=== PATIENT | female | born 1945 | race Caucasian/White ===

== ENCOUNTER 2023-07-28 21:44 | Inpatient (IN) | payer MEDICARE ==
[2023-07-28] MEDS ORDERED: Lidocaine 1% PF 5 ML VIAL ONE (23:40)
[2023-07-28 23:54] LABS: #Eosinphils 0.2 thou/uL (0.0-0.7); #Monocytes 0.9 thou/uL (0.11-0.59); %Basophils 0.2 % (0.0-1.0); %Eosinophils 1.7 % (0.0-10.0); %Lymphocytes 21.2 % (21.0-51.0); %Neutrophils 67.6 % (42.0-75.0); Hematocrit 40.1 % (36.0-47.0); Hemoglobin 12.7 g/dL (12.0-16.0); Mean Corpuscular HGB CONC 31.7 g/dL (32.0-36.0); Mean Corpuscular Hemoglobin 27.2 pg (27.0-31.0); Mean Corpuscular Volume 85.9 fl (78.0-98.0); Mean Platelet Volume 9.5 fL (7.4-10.4); Platelet Count 109 10x3/uL (130-400); RBC Distribution Width 26.1 % (11.5-14.5); Red Blood Cell (RBC) Count 4.67 mill/uL (4.20-5.40); White Blood Cell (WBC) Count 10.4 10x3/uL (4.8-10.8)
[2023-07-29 00:06] LABS: INR-International Normal Ratio 1.4; PTT 31.2 sec (22.9-36.1); Prothrombin Time 17.3 sec (12.0-14.7)
[2023-07-29 00:14] LABS: ALT (SGPT) 28 U/L (8-55); AST (SGOT) 39 U/L (5-34); Albumin 2.9 g/dL (3.4-4.8); Alkaline Phosphatase 162 U/L (40-110); Anion Gap 18 mmol/L (10-20); BUN (Urea Nitrogen) 24 mg/dL (9.8-20.1); Bilirubin, Total 2.2 mg/dL (0.2-1.2); Calc. Creatinine Clearance 0 mL/min (70-130); Calcium 9.1 mg/dL (7.8-10.44); Carbon Dioxide 24 mmol/L (23-31); Chloride 100 mmol/L (98-107); Estimated GFR 32; Globulin 4.6 g/dL (2.4-3.5); Glucose 110 mg/dL (83-110); Potassium 4.3 mmol/L (3.5-5.1); Protein, Total 7.5 g/dL (5.8-8.1); Sodium 138 mmol/L (136-145)
[2023-07-29 00:28] LABS: Anisocytosis MARKED = >30 cells HPF (0-5); CellaVision Operator ID lab.sh2; Hypochromia SLIGHT = 6-15 cells HPF (0-5); Macrocytosis MODERATE=16-30 cells HPF (0-5); Ovalocytes SLIGHT = 2-5 cells HPF (0-1); Platelet Adequacy Comment Platelets Decreased; Polychromasia MODERATE = 3-4 cells HPF (0-2)
[2023-07-29 00:43] LABS: Troponin I Less than 0.010 ng/mL (< 0.028)
[2023-07-29] MEDS ORDERED: Lorazepam 1 MG TAB ONE (01:01)
[2023-07-29] MEDS ORDERED: Ondansetron ODT 4 MG TAB ONE (01:05)
[2023-07-29] MEDS ORDERED: Morphine 4 MG/ML VIAL ONE (01:21)
[2023-07-29] MEDS ORDERED: Haloperidol Lactate 5 MG/ML VIAL ONE ×2 (01:21→02:16)
[2023-07-29] MEDS ORDERED: Ondansetron PF 4 MG/2 ML Vial ONE (01:21)
[2023-07-29] MEDS ORDERED: Dextrose 50% Abboject 50 ML SYRINGE SLOW IVP PRN (03:34)
[2023-07-29] MEDS ORDERED: Dextrose 5% in Water 1,000 ML IV PRN (03:34)
[2023-07-29] MEDS ORDERED: Glucagon 1 MG/ML KIT IM PRN (03:34)
[2023-07-29] MEDS ORDERED: Acetaminophen 500 MG TAB PO PRN (03:38)
[2023-07-29 04:14] LABS: #Eosinphils 0.1 thou/uL (0.0-0.7); #Monocytes 0.9 thou/uL (0.11-0.59); #Neutrophils 8.2 thou/uL (1.40-6.50); %Basophils 0.2 % (0.0-1.0); %Eosinophils 0.9 % (0.0-10.0); %Lymphocytes 14.4 % (21.0-51.0); %Monocytes 7.9 % (0.0-10.0); %Neutrophils 76.2 % (42.0-75.0); Hematocrit 37.3 % (36.0-47.0); Mean Corpuscular HGB CONC 32.2 g/dL (32.0-36.0); Mean Corpuscular Hemoglobin 27.3 pg (27.0-31.0); Mean Corpuscular Volume 84.8 fl (78.0-98.0); Mean Platelet Volume 9.7 fL (7.4-10.4); Platelet Count 108 10x3/uL (130-400); RBC Distribution Width 25.8 % (11.5-14.5); White Blood Cell (WBC) Count 10.8 10x3/uL (4.8-10.8)
[2023-07-29 04:33] LABS: Anion Gap 16 mmol/L (10-20); BUN (Urea Nitrogen) 24 mg/dL (9.8-20.1); Calc. Creatinine Clearance 0 mL/min (70-130); Calcium 9.4 mg/dL (7.8-10.44); Carbon Dioxide 27 mmol/L (23-31); Chloride 100 mmol/L (98-107); Estimated GFR 35; Glucose 152 mg/dL (83-110); Sodium 139 mmol/L (136-145)
[2023-07-29 04:40] LABS: Magnesium 2.3 mg/dL (1.6-2.6)
[2023-07-29 05:32] LABS: Bacteria/HPF 4+ HPF (None Seen); Bilirubin Negative (Negative); Blood, Urine 2+ (Negative); CAUTI Indications for Culture Alt mental st,lethar; Clarity Extra Turbid (Clear); Glucose, Urine (Dipstick) 200 mg/dL (Negative); Ketone, Urine Negative (Negative); Leukocyte 500 Leu/uL (Negative); Nitrite 1+ (Negative); Protein, Urine (Dipstick) 20 mg/dL (Neg-Trace); Specific Gravity, Urine 1.012 (1.002-1.036); Urobilinogen Normal mg/dL (Less than 2); WBC/HPF Greater than 50 HPF (0-3); Yeast-Budding 4+ HPF (None Seen); pH, Urine 5.5 (5.0-9.0)
[2023-07-29 05:34] LABS: Urine Culture Reflex Yes Yes
[2023-07-29 05:36] LABS: Amphetamine Not Detected (NotDetected); Barbiturates Screen Not Detected (NotDetected); Benzodiazepine Screen Not Detected (NotDetected); Cocaine Metabolite Screen Not Detected (NotDetected); Methadone Not Detected (NotDetected); Methamphetamine Not Detected (NotDetected); Opiate Screen Detected (NotDetected); Oxycodone Screen Not Detected (NotDetected); Phencyclidine (PCP) Not Detected (NotDetected); THC/Cannabinoid Screen Not Detected (NotDetected); Tricyclic Screen Not Detected (NotDetected)
[2023-07-29] MEDS ORDERED: Lactulose 10 GM/15 ML Oral Solution PR SCH (06:00)
[2023-07-29] MEDS ORDERED: Ondansetron PF 4 MG/2 ML Vial IVP PRN (06:00)
[2023-07-29 06:29] LABS: Actual Bicarbonate (HCO3a) 28.1 mEq/L (22-28); Analyzer IN Cardio ER; Base Excess (BEa) 4.5 mEq/L (-2.0 to +3.0); CO2 Tension 38.3 mmHg (35.0-45.0); Calcium, Ionized (arterial) 1.21 mmol/L (1.12-1.30); Carboxyhemoglobin (COHb) 0.9 gm% (0.0-3.0); Hematocrit-ABG 37 % (36.0-47.0); Hemoglobin (Hb) 12.6 g/dL (12.0-16.0); O2 Tension (PaO2), arterial 74.8 mmHg (> 70.0); Potassium - ABG Lab 3.97 mmol/L (3.70-5.30); pH, Arterial 7.483 (7.35-7.45)
[2023-07-29 06:31] LABS: ALV-art Gradient 27.055 mmHg (0-20)
[2023-07-29] MEDS: Nadolol 40 MG TAB PO SCH (07:35)
[2023-07-29] MEDS: Empagliflozin 10 MG TAB PO SCH (07:35)
[2023-07-29] MEDS: Rifaximin 200 MG TAB PO SCH ×2 (07:36→22:18)
[2023-07-29] MEDS: Albumin 25% 25 GM/100 ML BOT IVPB SCH ×3 (08:17→16:05)
[2023-07-29] MEDS: LevoFLOXacin 250 mg/D5W 250 MG in Premix 1 BAG IVPB SCH (08:31)
[2023-07-29 11:43] LABS: Bilirubin Negative (Negative); Blood, Urine Negative (Negative); CAUTI Indications for Culture Alt mental st,lethar; Clarity Turbid (Clear); Glucose, Urine (Dipstick) 500 mg/dL (Negative); Ketone, Urine Negative (Negative); Leukocyte 250 Leu/uL (Negative); Nitrite Negative (Negative); Protein, Urine (Dipstick) Negative (Neg-Trace); Specific Gravity, Urine 1.013 (1.002-1.036); Urobilinogen Normal mg/dL (Less than 2); WBC/HPF 21-50 HPF (0-3); Yeast-Budding 2+ HPF (None Seen); pH, Urine 5.5 (5.0-9.0)
[2023-07-29] MEDS: Sodium Chloride 0.9% 1,000 ML IV SCH (11:51)
[2023-07-29 11:52] LABS: Bacteria/HPF 2+ HPF (None Seen); RBC/HPF 0-3 HPF (0-3)
[2023-07-29] MEDS: traMADol HCl 50 MG TAB PO SCH ×2 (16:04→22:19)
[2023-07-29] MEDS ORDERED: Morphine 2 MG/ML VIAL SLOW IVP SCH (23:15)
[2023-07-30] MEDS ORDERED: Morphine 2 MG/ML VIAL SLOW IVP SCH (03:30)
[2023-07-30] MEDS: Sodium Chloride 0.9% 1,000 ML IV SCH ×2 (03:58→11:49)
[2023-07-30] MEDS: traMADol HCl 50 MG TAB PO SCH ×3 (06:47→18:51)
[2023-07-30 06:48] LABS: #Eosinphils 0.1 thou/uL (0.0-0.7); #Monocytes 0.8 thou/uL (0.11-0.59); #Neutrophils 3.6 thou/uL (1.40-6.50); %Basophils 0.2 % (0.0-1.0); %Eosinophils 1.2 % (0.0-10.0); %Lymphocytes 21.8 % (21.0-51.0); %Monocytes 13.2 % (0.0-10.0); %Neutrophils 63.4 % (42.0-75.0); Hematocrit 34.7 % (36.0-47.0); Hemoglobin 10.8 g/dL (12.0-16.0); Mean Corpuscular HGB CONC 31.1 g/dL (32.0-36.0); Mean Corpuscular Hemoglobin 27.5 pg (27.0-31.0); Mean Corpuscular Volume 88.3 fl (78.0-98.0); Mean Platelet Volume 9.6 fL (7.4-10.4); RBC Distribution Width 25.6 % (11.5-14.5); Red Blood Cell (RBC) Count 3.93 mill/uL (4.20-5.40); White Blood Cell (WBC) Count 5.7 10x3/uL (4.8-10.8)
[2023-07-30 06:59] LABS: Platelet Count 61 10x3/uL (130-400)
[2023-07-30 07:13] LABS: Anion Gap 13 mmol/L (10-20); BUN (Urea Nitrogen) 20 mg/dL (9.8-20.1); Calc. Creatinine Clearance 50 mL/min (70-130); Calcium 9.6 mg/dL (7.8-10.44); Carbon Dioxide 26 mmol/L (23-31); Chloride 109 mmol/L (98-107); Estimated GFR 54; Glucose 86 mg/dL (83-110); Magnesium 2.2 mg/dL (1.6-2.6); Potassium 3.5 mmol/L (3.5-5.1); Sodium 144 mmol/L (136-145)
[2023-07-30] MEDS: Nadolol 40 MG TAB PO SCH (08:58)
[2023-07-30] MEDS: Rifaximin 200 MG TAB PO SCH ×2 (08:58→21:27)
[2023-07-30] MEDS: LevoFLOXacin 250 mg/D5W 250 MG in Premix 1 BAG IVPB SCH (08:58)
[2023-07-30] MEDS: Empagliflozin 10 MG TAB PO SCH (08:58)
[2023-07-30] MEDS: Morphine 2 MG/ML VIAL SLOW IVP PRN ×2 (13:11→22:07)
[2023-07-30] MEDS ORDERED: Morphine 4 MG/ML VIAL SLOW IVP SCH (13:15)
[2023-07-30] MEDS: Lorazepam 2 MG/ML VIAL SLOW IVP PRN (13:34)
[2023-07-30] MEDS: Dextrose 5 %-0.45 % NaCl 1,000 ML IV SCH (19:49)
[2023-07-31] MEDS: traMADol HCl 50 MG TAB PO SCH ×5 (00:29→22:31)
[2023-07-31] MEDS: Morphine 2 MG/ML VIAL SLOW IVP PRN ×3 (04:04→22:29)
[2023-07-31] MEDS: Dextrose 5 %-0.45 % NaCl 1,000 ML IV SCH ×3 (04:05→17:17)
[2023-07-31 07:15] LABS: #Eosinphils 0.1 thou/uL (0.0-0.7); #Monocytes 0.5 thou/uL (0.11-0.59); #Neutrophils 2.4 thou/uL (1.40-6.50); %Basophils 0.3 % (0.0-1.0); %Eosinophils 2.5 % (0.0-10.0); %Lymphocytes 22.8 % (21.0-51.0); %Monocytes 13.3 % (0.0-10.0); %Neutrophils 60.8 % (42.0-75.0); Hematocrit 34.1 % (36.0-47.0); Hemoglobin 10.6 g/dL (12.0-16.0); Mean Corpuscular HGB CONC 31.1 g/dL (32.0-36.0); Mean Corpuscular Hemoglobin 27.5 pg (27.0-31.0); Mean Corpuscular Volume 88.6 fl (78.0-98.0); RBC Distribution Width 25.6 % (11.5-14.5); Red Blood Cell (RBC) Count 3.85 mill/uL (4.20-5.40)
[2023-07-31 07:22] LABS: Anion Gap 14 mmol/L (10-20); BUN (Urea Nitrogen) 17 mg/dL (9.8-20.1); Calc. Creatinine Clearance 58 mL/min (70-130); Calcium 9.2 mg/dL (7.8-10.44); Carbon Dioxide 23 mmol/L (23-31); Chloride 112 mmol/L (98-107); Estimated GFR 62; Glucose 99 mg/dL (83-110); Potassium 3.5 mmol/L (3.5-5.1); Sodium 145 mmol/L (136-145)
[2023-07-31 07:50] LABS: Anisocytosis SLIGHT = 6-15 cells HPF (0-5); Burr Cells SLIGHT = 2-5 cells HPF (0-1); CellaVision Operator ID LAB.NR; Hypochromia SLIGHT = 6-15 cells HPF (0-5); Macrocytosis SLIGHT = 6-15 cells HPF (0-5); Platelet Adequacy Comment Platelets Decreased; Polychromasia SLIGHT = 2-3 cells HPF (0-2)
[2023-07-31 07:51] LABS: Platelet Count 41 10x3/uL (130-400)
[2023-07-31] MEDS: LevoFLOXacin 250 mg/D5W 250 MG in Premix 1 BAG IVPB SCH (09:17)
[2023-07-31] MEDS: Rifaximin 200 MG TAB PO SCH ×2 (09:53→22:23)
[2023-07-31] MEDS: Nadolol 40 MG TAB PO SCH (09:53)
[2023-07-31] MEDS: Empagliflozin 10 MG TAB PO SCH (09:53)
[2023-07-31] MEDS: Aztreonam 1 GM in Sodium Chloride 0.9% 100 ML IVPB SCH ×2 (14:09→22:31)
[2023-07-31] MEDS: Lorazepam 2 MG/ML VIAL SLOW IVP PRN (14:16)
[2023-08-01 04:34] LABS: #Eosinphils 0.1 thou/uL (0.0-0.7); #Monocytes 0.7 thou/uL (0.11-0.59); #Neutrophils 2.2 thou/uL (1.40-6.50); %Basophils 0.2 % (0.0-1.0); %Eosinophils 2.6 % (0.0-10.0); %Lymphocytes 28.5 % (21.0-51.0); %Neutrophils 52.5 % (42.0-75.0); Hematocrit 35.6 % (36.0-47.0); Hemoglobin 11.1 g/dL (12.0-16.0); Mean Corpuscular HGB CONC 31.2 g/dL (32.0-36.0); Mean Corpuscular Hemoglobin 27.6 pg (27.0-31.0); Mean Corpuscular Volume 88.6 fl (78.0-98.0); Mean Platelet Volume 10.3 fL (7.4-10.4); RBC Distribution Width 25.2 % (11.5-14.5); Red Blood Cell (RBC) Count 4.02 mill/uL (4.20-5.40); White Blood Cell (WBC) Count 4.3 10x3/uL (4.8-10.8)
[2023-08-01 04:36] LABS: Platelet Count 34 10x3/uL (130-400)
[2023-08-01] MEDS: traMADol HCl 50 MG TAB PO SCH ×3 (04:57→17:06)
[2023-08-01 05:16] LABS: ALT (SGPT) 23 U/L (8-55); AST (SGOT) 50 U/L (5-34); Albumin 2.7 g/dL (3.4-4.8); Alkaline Phosphatase 107 U/L (40-110); Anion Gap 13 mmol/L (10-20); BUN (Urea Nitrogen) 11 mg/dL (9.8-20.1); Bilirubin, Total 1.7 mg/dL (0.2-1.2); Calc. Creatinine Clearance 66 mL/min (70-130); Calcium 8.9 mg/dL (7.8-10.44); Carbon Dioxide 20 mmol/L (23-31); Chloride 112 mmol/L (98-107); Estimated GFR 72; Globulin 3.8 g/dL (2.4-3.5); Glucose 111 mg/dL (83-110); Magnesium 1.7 mg/dL (1.6-2.6); Potassium 4.3 mmol/L (3.5-5.1); Protein, Total 6.5 g/dL (5.8-8.1); Sodium 141 mmol/L (136-145)
[2023-08-01] MEDS: Aztreonam 1 GM in Sodium Chloride 0.9% 100 ML IVPB SCH ×3 (06:46→21:29)
[2023-08-01] MEDS: Empagliflozin 10 MG TAB PO SCH (08:27)
[2023-08-01] MEDS: Rifaximin 200 MG TAB PO SCH ×2 (09:33→21:28)
[2023-08-01] MEDS: Nadolol 40 MG TAB PO SCH (09:33)
[2023-08-01] MEDS: Dextrose 5 %-0.45 % NaCl 1,000 ML IV SCH ×2 (09:41→22:20)
[2023-08-01] MEDS: Morphine 2 MG/ML VIAL SLOW IVP PRN ×4 (09:41→21:30)
[2023-08-01] MEDS: LevoFLOXacin 250 mg/D5W 250 MG in Premix 1 BAG IVPB SCH (11:05)
[2023-08-01] MEDS: Linezolid 600 MG in Premix 1 BAG IVPB SCH (12:19)
[2023-08-02] MEDS: traMADol HCl 50 MG TAB PO SCH ×4 (01:05→18:26)
[2023-08-02] MEDS: Linezolid 600 MG in Premix 1 BAG IVPB SCH ×2 (01:08→11:09)
[2023-08-02] MEDS: Morphine 2 MG/ML VIAL SLOW IVP PRN ×3 (03:34→21:41)
[2023-08-02] MEDS: Aztreonam 1 GM in Sodium Chloride 0.9% 100 ML IVPB SCH ×3 (05:54→21:35)
[2023-08-02 06:19] LABS: #Eosinphils 0.1 thou/uL (0.0-0.7); #Monocytes 0.3 thou/uL (0.11-0.59); #Neutrophils 2.4 thou/uL (1.40-6.50); %Basophils 0.3 % (0.0-1.0); %Eosinophils 3.1 % (0.0-10.0); %Lymphocytes 20.4 % (21.0-51.0); %Monocytes 9.2 % (0.0-10.0); Hematocrit 30.2 % (36.0-47.0); Hemoglobin 9.3 g/dL (12.0-16.0); Mean Corpuscular HGB CONC 30.8 g/dL (32.0-36.0); Mean Corpuscular Hemoglobin 26.8 pg (27.0-31.0); Mean Platelet Volume 10.1 fL (7.4-10.4); Red Blood Cell (RBC) Count 3.47 mill/uL (4.20-5.40); White Blood Cell (WBC) Count 3.6 10x3/uL (4.8-10.8)
[2023-08-02 06:21] LABS: Platelet Count 43 10x3/uL (130-400)
[2023-08-02 06:45] LABS: Anisocytosis MODERATE=16-30 cells HPF (0-5); CellaVision Operator ID lab.sh2; Hypochromia SLIGHT = 6-15 cells HPF (0-5); Macrocytosis SLIGHT = 6-15 cells HPF (0-5); Ovalocytes SLIGHT = 2-5 cells HPF (0-1); Platelet Adequacy Comment Platelets Decreased; Polychromasia SLIGHT = 2-3 cells HPF (0-2)
[2023-08-02 06:48] LABS: ALT (SGPT) 18 U/L (8-55); AST (SGOT) 29 U/L (5-34); Albumin 2.7 g/dL (3.4-4.8); Alkaline Phosphatase 101 U/L (40-110); Anion Gap 9 mmol/L (10-20); BUN (Urea Nitrogen) 9 mg/dL (9.8-20.1); Bilirubin, Total 1.7 mg/dL (0.2-1.2); Calc. Creatinine Clearance 74 mL/min (70-130); Calcium 8.4 mg/dL (7.8-10.44); Carbon Dioxide 22 mmol/L (23-31); Chloride 109 mmol/L (98-107); Estimated GFR 80; Glucose 193 mg/dL (83-110); Potassium 2.9 mmol/L (3.5-5.1); Protein, Total 5.7 g/dL (5.8-8.1); Sodium 137 mmol/L (136-145)
[2023-08-02] MEDS: Dextrose 5 %-0.45 % NaCl 1,000 ML IV SCH ×3 (07:06→21:34)
[2023-08-02] MEDS: Lorazepam 2 MG/ML VIAL SLOW IVP PRN ×2 (08:45→18:35)
[2023-08-02] MEDS: Nadolol 40 MG TAB PO SCH (08:50)
[2023-08-02] MEDS: Rifaximin 200 MG TAB PO SCH ×3 (08:50→23:35)
[2023-08-02] MEDS: Empagliflozin 10 MG TAB PO SCH (08:51)
[2023-08-03] MEDS: Linezolid 600 MG in Premix 1 BAG IVPB SCH ×2 (00:08→12:30)
[2023-08-03] MEDS: traMADol HCl 50 MG TAB PO SCH ×4 (00:45→18:01)
[2023-08-03] MEDS: Lorazepam 2 MG/ML VIAL SLOW IVP PRN ×3 (01:09→21:24)
[2023-08-03] MEDS: Aztreonam 1 GM in Sodium Chloride 0.9% 100 ML IVPB SCH ×3 (06:30→21:25)
[2023-08-03 06:37] LABS: ALT (SGPT) 17 U/L (8-55); AST (SGOT) 32 U/L (5-34); Albumin 2.7 g/dL (3.4-4.8); Alkaline Phosphatase 110 U/L (40-110); Anion Gap 11 mmol/L (10-20); BUN (Urea Nitrogen) 8 mg/dL (9.8-20.1); Bilirubin, Total 1.9 mg/dL (0.2-1.2); Calc. Creatinine Clearance 76 mL/min (70-130); Calcium 8.4 mg/dL (7.8-10.44); Carbon Dioxide 23 mmol/L (23-31); Chloride 108 mmol/L (98-107); Estimated GFR 77; Glucose 119 mg/dL (83-110); Potassium 2.9 mmol/L (3.5-5.1); Protein, Total 5.7 g/dL (5.8-8.1); Sodium 139 mmol/L (136-145)
[2023-08-03 06:52] LABS: #Eosinphils 0.1 thou/uL (0.0-0.7); #Monocytes 0.4 thou/uL (0.11-0.59); #Neutrophils 2.1 thou/uL (1.40-6.50); %Basophils 0.6 % (0.0-1.0); %Eosinophils 2.9 % (0.0-10.0); %Lymphocytes 25.7 % (21.0-51.0); %Monocytes 10.7 % (0.0-10.0); %Neutrophils 59.8 % (42.0-75.0); Hematocrit 35.2 % (36.0-47.0); Mean Corpuscular HGB CONC 31.3 g/dL (32.0-36.0); Mean Corpuscular Hemoglobin 27.8 pg (27.0-31.0); Mean Corpuscular Volume 89.1 fl (78.0-98.0); Mean Platelet Volume 9.7 fL (7.4-10.4); RBC Distribution Width 24.2 % (11.5-14.5); Red Blood Cell (RBC) Count 3.95 mill/uL (4.20-5.40); White Blood Cell (WBC) Count 3.5 10x3/uL (4.8-10.8)
[2023-08-03 06:54] LABS: Platelet Count 28 10x3/uL (130-400)
[2023-08-03] MEDS: HYDROcodone/Acetaminophen 5/325 mg Tablet PO PRN ×2 (09:09→14:57)
[2023-08-03] MEDS: Nadolol 40 MG TAB PO SCH (09:11)
[2023-08-03] MEDS: Empagliflozin 10 MG TAB PO SCH (09:25)
[2023-08-03] MEDS: Rifaximin 200 MG TAB PO SCH ×2 (09:25→21:18)
[2023-08-03] MEDS: Dextrose 5 %-0.45 % NaCl 1,000 ML IV SCH ×2 (12:25→21:32)
[2023-08-03] MEDS: Morphine 2 MG/ML VIAL SLOW IVP PRN (16:41)
[2023-08-04] MEDS: Lorazepam 2 MG/ML VIAL SLOW IVP PRN ×2 (01:07→20:16)
[2023-08-04] MEDS: traMADol HCl 50 MG TAB PO SCH ×4 (01:08→20:20)
[2023-08-04] MEDS: Linezolid 600 MG in Premix 1 BAG IVPB SCH ×3 (01:08→23:37)
[2023-08-04] MEDS: Morphine 2 MG/ML VIAL SLOW IVP PRN ×4 (04:37→20:34)
[2023-08-04] MEDS: Aztreonam 1 GM in Sodium Chloride 0.9% 100 ML IVPB SCH ×3 (04:45→20:22)
[2023-08-04 06:20] LABS: ALT (SGPT) 19 U/L (8-55); AST (SGOT) 45 U/L (5-34); Albumin 2.7 g/dL (3.4-4.8); Alkaline Phosphatase 108 U/L (40-110); Anion Gap 11 mmol/L (10-20); BUN (Urea Nitrogen) 7 mg/dL (9.8-20.1); Bilirubin, Total 1.7 mg/dL (0.2-1.2); Calc. Creatinine Clearance 83 mL/min (70-130); Calcium 8.4 mg/dL (7.8-10.44); Carbon Dioxide 21 mmol/L (23-31); Chloride 108 mmol/L (98-107); Estimated GFR 86; Globulin 3.4 g/dL (2.4-3.5); Glucose 103 mg/dL (83-110); Potassium 3.4 mmol/L (3.5-5.1); Protein, Total 6.1 g/dL (5.8-8.1); Sodium 137 mmol/L (136-145)
[2023-08-04 07:25] LABS: #Eosinphils 0.2 thou/uL (0.0-0.7); #Monocytes 0.5 thou/uL (0.11-0.59); #Neutrophils 2.7 thou/uL (1.40-6.50); %Basophils 0.4 % (0.0-1.0); %Eosinophils 3.3 % (0.0-10.0); %Lymphocytes 24.6 % (21.0-51.0); %Monocytes 11.3 % (0.0-10.0); %Neutrophils 60.2 % (42.0-75.0); Hematocrit 35.5 % (36.0-47.0); Hemoglobin 11.2 g/dL (12.0-16.0); Mean Corpuscular HGB CONC 31.5 g/dL (32.0-36.0); Mean Corpuscular Hemoglobin 27.9 pg (27.0-31.0); Mean Corpuscular Volume 88.3 fl (78.0-98.0); Mean Platelet Volume 9.5 fL (7.4-10.4); RBC Distribution Width 23.9 % (11.5-14.5); Red Blood Cell (RBC) Count 4.02 mill/uL (4.20-5.40); White Blood Cell (WBC) Count 4.5 10x3/uL (4.8-10.8)
[2023-08-04 07:32] LABS: Platelet Count 55 10x3/uL (130-400)
[2023-08-04] MEDS: Rifaximin 200 MG TAB PO SCH ×2 (08:35→20:20)
[2023-08-04] MEDS: Nadolol 40 MG TAB PO SCH (08:35)
[2023-08-04] MEDS: Empagliflozin 10 MG TAB PO SCH (08:35)
[2023-08-04] MEDS: Dextrose 5 %-0.45 % NaCl 1,000 ML IV SCH (09:48)
[2023-08-04] MEDS ORDERED: Dextrose 5 %-0.45 % NaCl 1,000 ML IV SCH (16:47)
[2023-08-04] MEDS ORDERED: Sodium Chloride 0.9% 1,000 ML IV SCH (17:00)
[2023-08-04] MEDS: NS 0.9% w/ 20 MEQ KCL 1,000 ML/1,000 ML BAG IV SCH ×2 (17:05→17:58)
[2023-08-05] MEDS: traMADol HCl 50 MG TAB PO SCH ×4 (00:28→19:03)
[2023-08-05] MEDS: Lorazepam 2 MG/ML VIAL SLOW IVP PRN ×2 (01:51→19:50)
[2023-08-05] MEDS: Morphine 2 MG/ML VIAL SLOW IVP PRN ×2 (02:00→19:50)
[2023-08-05 05:32] LABS: #Eosinphils 0.1 thou/uL (0.0-0.7); #Monocytes 0.6 thou/uL (0.11-0.59); #Neutrophils 2.2 thou/uL (1.40-6.50); %Basophils 0.5 % (0.0-1.0); %Eosinophils 2.3 % (0.0-10.0); %Lymphocytes 31.5 % (21.0-51.0); %Monocytes 14.7 % (0.0-10.0); %Neutrophils 50.8 % (42.0-75.0); Hematocrit 34.3 % (36.0-47.0); Hemoglobin 10.8 g/dL (12.0-16.0); Mean Corpuscular HGB CONC 31.5 g/dL (32.0-36.0); Mean Corpuscular Hemoglobin 27.8 pg (27.0-31.0); Mean Corpuscular Volume 88.4 fl (78.0-98.0); Mean Platelet Volume 10.1 fL (7.4-10.4); RBC Distribution Width 24.1 % (11.5-14.5); Red Blood Cell (RBC) Count 3.88 mill/uL (4.20-5.40); White Blood Cell (WBC) Count 4.4 10x3/uL (4.8-10.8)
[2023-08-05 05:52] LABS: Platelet Count 54 10x3/uL (130-400)
[2023-08-05] MEDS: Aztreonam 1 GM in Sodium Chloride 0.9% 100 ML IVPB SCH (05:53)
[2023-08-05 06:03] LABS: ALT (SGPT) 18 U/L (8-55); AST (SGOT) 29 U/L (5-34); Albumin 2.5 g/dL (3.4-4.8); Alkaline Phosphatase 108 U/L (40-110); Anion Gap 10 mmol/L (10-20); BUN (Urea Nitrogen) 6 mg/dL (9.8-20.1); Bilirubin, Total 1.7 mg/dL (0.2-1.2); Calc. Creatinine Clearance 94 mL/min (70-130); Calcium 8.2 mg/dL (7.8-10.44); Carbon Dioxide 20 mmol/L (23-31); Chloride 110 mmol/L (98-107); Estimated GFR 92; Globulin 3.3 g/dL (2.4-3.5); Glucose 82 mg/dL (83-110); Potassium 3.3 mmol/L (3.5-5.1); Protein, Total 5.8 g/dL (5.8-8.1); Sodium 137 mmol/L (136-145)
[2023-08-05 06:52] LABS: Anisocytosis SLIGHT = 6-15 cells (100X) (0-5/hpf); Burr Cells SLIGHT = 2-5 cells (100X) (0-1/hpf); Platelet Adequacy Comment Appears Decreased
[2023-08-05] MEDS: NS 0.9% w/ 20 MEQ KCL 1,000 ML/1,000 ML BAG IV SCH ×2 (07:53→18:48)
[2023-08-05 08:43] VITALS: BMI 27.4
[2023-08-05] MEDS: Nadolol 40 MG TAB PO SCH (09:46)
[2023-08-05] MEDS: Empagliflozin 10 MG TAB PO SCH (09:46)
[2023-08-05] MEDS: Rifaximin 200 MG TAB PO SCH ×2 (09:47→21:59)
[2023-08-05] MEDS: Linezolid 600 MG in Premix 1 BAG IVPB SCH (12:54)
[2023-08-05] MEDS ORDERED: Oxymetazoline HCl 0.05% (30 ML BOT) ONE (15:40)
[2023-08-05] MEDS: Aspirin 325 MG TAB PER TUBE SCH ×2 (17:40→18:48)
[2023-08-05] MEDS: Atorvastatin Calcium 40 MG TAB PER TUBE SCH (21:59)
[2023-08-06] MEDS: traMADol HCl 50 MG TAB PO SCH ×4 (00:24→17:35)
[2023-08-06] MEDS: Linezolid 600 MG in Premix 1 BAG IVPB SCH (00:24)
[2023-08-06] MEDS: Morphine 2 MG/ML VIAL SLOW IVP PRN ×3 (01:04→19:34)
[2023-08-06] MEDS: Lorazepam 2 MG/ML VIAL SLOW IVP PRN (01:04)
[2023-08-06] MEDS: NS 0.9% w/ 20 MEQ KCL 1,000 ML/1,000 ML BAG IV SCH (05:25)
[2023-08-06 08:15] LABS: #Eosinphils 0.1 thou/uL (0.0-0.7); #Monocytes 0.4 thou/uL (0.11-0.59); #Neutrophils 2.5 thou/uL (1.40-6.50); %Basophils 0.5 % (0.0-1.0); %Eosinophils 1.8 % (0.0-10.0); %Lymphocytes 24.9 % (21.0-51.0); %Monocytes 9.3 % (0.0-10.0); %Neutrophils 63.2 % (42.0-75.0); Hematocrit 33.8 % (36.0-47.0); Hemoglobin 10.3 g/dL (12.0-16.0); Mean Corpuscular HGB CONC 30.5 g/dL (32.0-36.0); Mean Corpuscular Volume 91.8 fl (78.0-98.0); RBC Distribution Width 24.4 % (11.5-14.5); Red Blood Cell (RBC) Count 3.68 mill/uL (4.20-5.40); White Blood Cell (WBC) Count 3.9 10x3/uL (4.8-10.8)
[2023-08-06 08:31] LABS: Platelet Count 61 10x3/uL (130-400)
[2023-08-06 08:36] LABS: ALT (SGPT) 17 U/L (8-55); AST (SGOT) 41 U/L (5-34); Albumin 2.6 g/dL (3.4-4.8); Alkaline Phosphatase 122 U/L (40-110); Anion Gap 13 mmol/L (10-20); BUN (Urea Nitrogen) 9 mg/dL (9.8-20.1); Bilirubin, Total 1.7 mg/dL (0.2-1.2); Calc. Creatinine Clearance 84 mL/min (70-130); Calcium 8.4 mg/dL (7.8-10.44); Carbon Dioxide 18 mmol/L (23-31); Chloride 112 mmol/L (98-107); Estimated GFR 91; Globulin 3.3 g/dL (2.4-3.5); Glucose 128 mg/dL (83-110); Magnesium 1.6 mg/dL (1.6-2.6); Potassium 4.6 mmol/L (3.5-5.1); Protein, Total 5.9 g/dL (5.8-8.1); Sodium 138 mmol/L (136-145)
[2023-08-06] MEDS ORDERED: Aspirin 81 mg Enteric Coated Tablet PER TUBE SCH (09:00)
[2023-08-06 09:07] LABS: Anisocytosis SLIGHT = 6-15 cells HPF (0-5); Burr Cells SLIGHT = 2-5 cells HPF (0-1); CellaVision Operator ID LAB.CMB; Elliptocytes SLIGHT = 2-5 cells HPF (0-1); Macrocytosis SLIGHT = 6-15 cells HPF (0-5); Platelet Adequacy Comment Significant decrease; Polychromasia SLIGHT = 2-3 cells HPF (0-2)
[2023-08-06] MEDS: Rifaximin 200 MG TAB PO SCH ×2 (09:26→20:15)
[2023-08-06] MEDS: Empagliflozin 10 MG TAB PO SCH (09:26)
[2023-08-06] MEDS: Nadolol 40 MG TAB PO SCH (09:26)
[2023-08-06] MEDS: Aspirin Chewable 81 MG TAB PER TUBE SCH (09:26)
[2023-08-06] MEDS ORDERED: Iopamidol-370 76% 500 ML MDV (1 ML CHARGE) ONE (09:29)
[2023-08-06] MEDS ORDERED: Thiamine HCl 200 MG/2 ML VIAL SLOW IVP SCH (15:00)
[2023-08-06] MEDS: rOPINIRole HCl 1 MG TAB PO SCH (20:15)
[2023-08-06] MEDS: Atorvastatin Calcium 40 MG TAB PER TUBE SCH (20:15)
[2023-08-06] MEDS: Ursodiol 300 MG CAP PO SCH (20:16)
[2023-08-06] MEDS: Melatonin 3 MG TAB PER TUBE SCH (20:16)
[2023-08-06] MEDS ORDERED: Melatonin 3 MG TAB PO SCH (21:00)
[2023-08-07] MEDS: Lorazepam 2 MG/ML VIAL SLOW IVP PRN (00:14)
[2023-08-07] MEDS: traMADol HCl 50 MG TAB PO SCH ×4 (00:14→17:36)
[2023-08-07 07:17] LABS: #Eosinphils 0.1 thou/uL (0.0-0.7); #Monocytes 0.5 thou/uL (0.11-0.59); %Basophils 0.3 % (0.0-1.0); %Eosinophils 1.1 % (0.0-10.0); %Lymphocytes 15.9 % (21.0-51.0); %Monocytes 7.4 % (0.0-10.0); %Neutrophils 75.1 % (42.0-75.0); Hematocrit 33.1 % (36.0-47.0); Hemoglobin 10.6 g/dL (12.0-16.0); Mean Corpuscular Hemoglobin 28.5 pg (27.0-31.0); Mean Platelet Volume 9.7 fL (7.4-10.4); RBC Distribution Width 24.8 % (11.5-14.5); Red Blood Cell (RBC) Count 3.72 mill/uL (4.20-5.40); White Blood Cell (WBC) Count 6.6 10x3/uL (4.8-10.8)
[2023-08-07 07:26] LABS: Platelet Count 66 10x3/uL (130-400)
[2023-08-07 07:31] LABS: ALT (SGPT) 17 U/L (8-55); AST (SGOT) 31 U/L (5-34); Albumin 2.8 g/dL (3.4-4.8); Alkaline Phosphatase 160 U/L (40-110); Anion Gap 11 mmol/L (10-20); BUN (Urea Nitrogen) 10 mg/dL (9.8-20.1); Bilirubin, Direct 1.1 mg/dL (0.1-0.3); Bilirubin, Total 1.9 mg/dL (0.2-1.2); Calc. Creatinine Clearance 72 mL/min (70-130); Calcium 8.7 mg/dL (7.8-10.44); Carbon Dioxide 23 mmol/L (23-31); Chloride 115 mmol/L (98-107); Estimated GFR 77; Globulin 3.4 g/dL (2.4-3.5); Glucose 156 mg/dL (83-110); Magnesium 1.9 mg/dL (1.6-2.6); Potassium 3.5 mmol/L (3.5-5.1); Protein, Total 6.2 g/dL (5.8-8.1); Sodium 145 mmol/L (136-145)
[2023-08-07 07:41] LABS: INR-International Normal Ratio 1.5; PTT 35.9 sec (22.9-36.1); Prothrombin Time 18.8 sec (12.0-14.7)
[2023-08-07] MEDS: BuPROPion XL 150 MG ER.TAB PO SCH (10:49)
[2023-08-07] MEDS: Ursodiol 300 MG CAP PO SCH ×2 (10:49→21:58)
[2023-08-07] MEDS: Torsemide 20 MG TAB PO SCH (10:49)
[2023-08-07] MEDS: rOPINIRole HCl 1 MG TAB PO SCH ×2 (10:50→21:58)
[2023-08-07] MEDS: Thyroid 30 MG TAB PO SCH (10:50)
[2023-08-07] MEDS: Nadolol 40 MG TAB PO SCH (10:50)
[2023-08-07] MEDS: Aspirin Chewable 81 MG TAB PER TUBE SCH (10:51)
[2023-08-07] MEDS: Montelukast Sodium 10 mg Tablet PO SCH (10:51)
[2023-08-07] MEDS: Rifaximin 200 MG TAB PO SCH ×2 (10:51→21:58)
[2023-08-07] MEDS: Empagliflozin 10 MG TAB PO SCH (10:52)
[2023-08-07] MEDS: Citalopram 10 MG TAB PO SCH (10:52)
[2023-08-07] MEDS: Spironolactone 25 MG TAB PO SCH ×2 (10:56→11:31)
[2023-08-07] MEDS: Morphine 2 MG/ML VIAL SLOW IVP PRN ×2 (15:07→19:46)
[2023-08-07] MEDS: HYDROcodone/Acetaminophen 5/325 mg Tablet PO PRN (21:57)
[2023-08-07] MEDS: Melatonin 3 MG TAB PER TUBE SCH (21:58)
[2023-08-07] MEDS: Atorvastatin Calcium 40 MG TAB PER TUBE SCH (21:58)
[2023-08-08] MEDS: traMADol HCl 50 MG TAB PO SCH ×2 (01:25→05:47)
[2023-08-08] MEDS: Lorazepam 2 MG/ML VIAL SLOW IVP PRN (02:27)
[2023-08-08 05:58] LABS: #Eosinphils 0.1 thou/uL (0.0-0.7); #Monocytes 0.5 thou/uL (0.11-0.59); #Neutrophils 2.8 thou/uL (1.40-6.50); %Basophils 0.2 % (0.0-1.0); %Eosinophils 2.1 % (0.0-10.0); %Lymphocytes 27.4 % (21.0-51.0); %Neutrophils 60.1 % (42.0-75.0); Hematocrit 28.8 % (36.0-47.0); Hemoglobin 8.9 g/dL (12.0-16.0); Mean Corpuscular HGB CONC 30.9 g/dL (32.0-36.0); Mean Corpuscular Hemoglobin 27.7 pg (27.0-31.0); Mean Corpuscular Volume 89.7 fl (78.0-98.0); Mean Platelet Volume 9.9 fL (7.4-10.4); RBC Distribution Width 25.6 % (11.5-14.5); Red Blood Cell (RBC) Count 3.21 mill/uL (4.20-5.40); White Blood Cell (WBC) Count 4.7 10x3/uL (4.8-10.8)
[2023-08-08 06:14] LABS: INR-International Normal Ratio 1.6; PTT 40.4 sec (22.9-36.1); Prothrombin Time 19.6 sec (12.0-14.7)
[2023-08-08 06:15] LABS: Platelet Count 48 10x3/uL (130-400)
[2023-08-08 06:18] LABS: ALT (SGPT) 15 U/L (8-55); AST (SGOT) 25 U/L (5-34); Albumin 2.4 g/dL (3.4-4.8); Alkaline Phosphatase 149 U/L (40-110); Anion Gap 9 mmol/L (10-20); BUN (Urea Nitrogen) 16 mg/dL (9.8-20.1); Bilirubin, Total 1.5 mg/dL (0.2-1.2); Calc. Creatinine Clearance 70 mL/min (70-130); Calcium 8.2 mg/dL (7.8-10.44); Carbon Dioxide 25 mmol/L (23-31); Chloride 115 mmol/L (98-107); Estimated GFR 75; Globulin 2.9 g/dL (2.4-3.5); Glucose 153 mg/dL (83-110); Potassium 3.4 mmol/L (3.5-5.1); Protein, Total 5.3 g/dL (5.8-8.1); Sodium 146 mmol/L (136-145)
[2023-08-08 07:24] LABS: Anisocytosis SLIGHT = 6-15 cells HPF (0-5); CellaVision Operator ID lab.dlt; Platelet Adequacy Comment Platelets Decreased; Polychromasia SLIGHT = 2-3 cells HPF (0-2); Smudge Cells 13.9 %
[2023-08-08] MEDS: Morphine 2 MG/ML VIAL SLOW IVP PRN (07:52)
[2023-08-08] MEDS ORDERED: Sodium Bicarbonate 2.5 MEQ/5 ML VIAL ONE ×2 (09:46→14:54)
[2023-08-08] MEDS ORDERED: Lidocaine 1% w/Epinephrine 1:100K 20 ML VIAL ONE (09:46)
[2023-08-08] MEDS: Ursodiol 300 MG CAP PO SCH (10:26)
[2023-08-08] MEDS: rOPINIRole HCl 1 MG TAB PO SCH (10:27)
[2023-08-08] MEDS: Torsemide 20 MG TAB PO SCH (10:27)
[2023-08-08] MEDS: Montelukast Sodium 10 mg Tablet PO SCH (10:27)
[2023-08-08] MEDS: Empagliflozin 10 MG TAB PO SCH (10:28)
[2023-08-08] MEDS: Citalopram 10 MG TAB PO SCH (10:28)
[2023-08-08] MEDS: Aspirin Chewable 81 MG TAB PER TUBE SCH (10:29)
[2023-08-08] MEDS: Nadolol 40 MG TAB PO SCH (10:29)
[2023-08-08] MEDS: Thyroid 30 MG TAB PO SCH (10:29)
[2023-08-08] MEDS: Spironolactone 25 MG TAB PO SCH (10:29)
[2023-08-08] MEDS: HYDROcodone/Acetaminophen 5/325 mg Tablet PO PRN (10:30)
[2023-08-08] MEDS ORDERED: Potassium Chloride 20 MEQ TAB PO SCH (10:45)
[2023-08-08] MEDS ORDERED: Electrolyte Replacement Protocol 1 EACH FS SCH (10:45)
[2023-08-08] MEDS ORDERED: Lorazepam 2 MG/ML VIAL SLOW IVP PRN (11:45)
[2023-08-08] MEDS ORDERED: Phytonadione 10 MG/ML AMP PO SCH (12:00)
[2023-08-08] MEDS ORDERED: Magnesium 2 GM/50 ML(in water) 2 GM in Premix 1 BAG IVPB SCH (14:00)
[2023-08-08] MEDS: buPROPion HCl 100 MG TAB PO SCH ×2 (14:12→18:58)
[2023-08-08] MEDS: Rifaximin 200 MG TAB PO SCH (14:17)
[2023-08-08] MEDS ORDERED: Lidocaine 1% PF 5 ML VIAL ONE (14:54)
[2023-08-08] MEDS: BuPROPion XL 150 MG ER.TAB PO SCH (15:43)
[2023-08-08] MEDS ORDERED: Pancrelipase DR 12,000 1 CAP FS PRN (16:45)
[2023-08-08] MEDS: Sodium Bicarbonate Tab 325 MG TAB PER TUBE PRN ×2 (17:48→18:43)
[2023-08-08] MEDS ORDERED: Acetaminophen 650 MG/20.3 ML UDCUP PER TUBE PRN (22:31)
[2023-08-08 22:36] LABS: BF Color Yellow; Body Fluid Source Ascites Body Fluid; Clarity Hazy (Clear); Tube # EDTA
[2023-08-08 22:59] LABS: RBC Count-Automated (BF) 1003 /cu.mm; WBC/Nucleated-Auto (BF) 35 /cu.mm
[2023-08-08 23:04] LABS: BF Segmented Neutrophils 38 %; Cell Count Non Hematic 18 %; Lymphocytes 44 %
[2023-08-09] MEDS ORDERED: Ursodiol 300 MG CAP PER TUBE SCH (00:30)
[2023-08-09] MEDS ORDERED: buPROPion HCl 100 MG TAB PER TUBE SCH (00:30)
[2023-08-09] MEDS ORDERED: rOPINIRole HCl 1 MG TAB PER TUBE SCH (00:30)
[2023-08-09] MEDS ORDERED: Rifaximin 200 MG TAB PER TUBE SCH (00:30)
[2023-08-09] MEDS: Melatonin 3 MG TAB PER TUBE SCH ×2 (00:50→22:20)
[2023-08-09] MEDS: Atorvastatin Calcium 40 MG TAB PER TUBE SCH ×2 (00:52→22:19)
[2023-08-09] MEDS: HYDROcodone/Acetaminophen 5/325 mg Tablet PER TUBE PRN ×3 (00:52→18:29)
[2023-08-09 06:48] LABS: #Eosinphils 0.1 thou/uL (0.0-0.7); #Monocytes 0.6 thou/uL (0.11-0.59); #Neutrophils 3.7 thou/uL (1.40-6.50); %Basophils 0.4 % (0.0-1.0); %Eosinophils 1.6 % (0.0-10.0); %Lymphocytes 21.7 % (21.0-51.0); %Monocytes 10.3 % (0.0-10.0); %Neutrophils 65.8 % (42.0-75.0); Hematocrit 30.7 % (36.0-47.0); Hemoglobin 9.5 g/dL (12.0-16.0); Mean Corpuscular HGB CONC 30.9 g/dL (32.0-36.0); Mean Corpuscular Hemoglobin 27.9 pg (27.0-31.0); RBC Distribution Width 25.9 % (11.5-14.5); Red Blood Cell (RBC) Count 3.41 mill/uL (4.20-5.40); White Blood Cell (WBC) Count 5.6 10x3/uL (4.8-10.8)
[2023-08-09 06:49] LABS: Platelet Count 59 10x3/uL (130-400)
[2023-08-09 06:59] LABS: INR-International Normal Ratio 1.5; Prothrombin Time 18.7 sec (12.0-14.7)
[2023-08-09] MEDS: Rifaximin 200 MG TAB PO SCH (07:07)
[2023-08-09] MEDS: rOPINIRole HCl 1 MG TAB PO SCH (07:08)
[2023-08-09] MEDS: Ursodiol 300 MG CAP PO SCH (07:08)
[2023-08-09 07:10] LABS: ALT (SGPT) 17 U/L (8-55); AST (SGOT) 29 U/L (5-34); Albumin 2.7 g/dL (3.4-4.8); Alkaline Phosphatase 133 U/L (40-110); Anion Gap 14 mmol/L (10-20); BUN (Urea Nitrogen) 20 mg/dL (9.8-20.1); Calc. Creatinine Clearance 59 mL/min (70-130); Calcium 9.1 mg/dL (7.8-10.44); Carbon Dioxide 27 mmol/L (23-31); Chloride 112 mmol/L (98-107); Cholesterol 66 mg/dl (< 200 Desired); Estimated GFR 61; Globulin 3.6 g/dL (2.4-3.5); Glucose 134 mg/dL (83-110); HDL Cholesterol 22 mg/dL (>60 Neg Risk); Iron 220 ug/dL (50-170); Iron 221 ug/dL (50-170); Iron Binding Capacity, Total 201 mcg/dL (265-497); Iron Binding Capacity, Total 206 mcg/dL (265-497); LDL Cholesterol, Calculated 28 mg/dL; Magnesium 2.2 mg/dL (1.6-2.6); Potassium 3.7 mmol/L (3.5-5.1); Protein, Total 6.3 g/dL (5.8-8.1); Sodium 149 mmol/L (136-145); Triglycerides 79 mg/dL (Less than 150)
[2023-08-09 07:47] LABS: CellaVision Operator ID LAB.GE; Platelet Adequacy Comment Platelets Decreased; Polychromasia MODERATE = 3-4 cells HPF (0-2)
[2023-08-09] MEDS: Montelukast Sodium 10 mg Tablet PER TUBE SCH (11:09)
[2023-08-09] MEDS: rOPINIRole HCl 1 MG TAB PER TUBE SCH ×2 (11:09→22:20)
[2023-08-09] MEDS: buPROPion HCl 100 MG TAB PER TUBE SCH ×4 (11:12→22:19)
[2023-08-09] MEDS: Citalopram 10 MG TAB PER TUBE SCH (11:13)
[2023-08-09] MEDS: Empagliflozin 10 MG TAB PO SCH (11:13)
[2023-08-09] MEDS: Nadolol 40 MG TAB PER TUBE SCH (11:13)
[2023-08-09] MEDS: Torsemide 20 MG TAB PER TUBE SCH (11:14)
[2023-08-09] MEDS: Ursodiol 300 MG CAP PER TUBE SCH ×2 (11:15→22:18)
[2023-08-09] MEDS: Lansoprazole 15 MG/5 ML (BATCHED)UDCUP PER TUBE SCH (11:15)
[2023-08-09] MEDS: Thyroid 30 MG TAB PO SCH (11:18)
[2023-08-09] MEDS ORDERED: Acetaminophen 650 MG/20.3 ML UDCUP PER TUBE PRN (12:05)
[2023-08-09] MEDS ORDERED: Morphine 2 MG/ML VIAL SLOW IVP PRN (12:10)
[2023-08-09] MEDS ORDERED: Dextrose 5% in Water 1,000 ML IV SCH (12:15)
[2023-08-09] MEDS: Rifaximin 200 MG TAB PER TUBE SCH ×2 (13:43→22:18)
[2023-08-09] MEDS: Spironolactone 25 MG TAB PER TUBE SCH (13:44)
[2023-08-09] MEDS: Morphine 2 MG/ML VIAL SLOW IVP PRN ×2 (16:07→22:16)
[2023-08-09 21:48] LABS: Bilirubin Negative (Negative); Blood, Urine Negative (Negative); Clarity Turbid (Clear); Glucose, Urine (Dipstick) 500 mg/dL (Negative); Ketone, Urine Negative (Negative); Leukocyte Negative Leu/uL (Negative); Nitrite Negative (Negative); Protein, Urine (Dipstick) Negative (Neg-Trace); RBC/HPF 0-3 HPF (0-3); Specific Gravity, Urine 1.009 (1.002-1.036); Squamous Epithelial 0-3 HPF (0-3); Urobilinogen Normal mg/dL (Less than 2); WBC/HPF 0-3 HPF (0-3); Yeast-Budding 1+ HPF (None Seen)
[2023-08-09 21:53] LABS: Bacteria/HPF 1+ HPF (None Seen)
[2023-08-10 05:01] LABS: #Eosinphils 0.1 thou/uL (0.0-0.7); #Monocytes 1.1 thou/uL (0.11-0.59); #Neutrophils 4.1 thou/uL (1.40-6.50); %Basophils 0.2 % (0.0-1.0); %Eosinophils 1.8 % (0.0-10.0); %Lymphocytes 19.6 % (21.0-51.0); %Monocytes 15.9 % (0.0-10.0); Hematocrit 29.6 % (36.0-47.0); Hemoglobin 9.4 g/dL (12.0-16.0); Mean Corpuscular HGB CONC 31.8 g/dL (32.0-36.0); Mean Corpuscular Hemoglobin 28.7 pg (27.0-31.0); Mean Corpuscular Volume 90.2 fl (78.0-98.0); Mean Platelet Volume 10.9 fL (7.4-10.4); RBC Distribution Width 25.7 % (11.5-14.5); Red Blood Cell (RBC) Count 3.28 mill/uL (4.20-5.40); White Blood Cell (WBC) Count 6.6 10x3/uL (4.8-10.8)
[2023-08-10] MEDS: Morphine 2 MG/ML VIAL SLOW IVP PRN ×5 (05:02→20:18)
[2023-08-10 05:23] LABS: INR-International Normal Ratio 1.4; PTT 36.5 sec (22.9-36.1); Prothrombin Time 17.5 sec (12.0-14.7)
[2023-08-10 05:42] LABS: ALT (SGPT) 18 U/L (8-55); AST (SGOT) 34 U/L (5-34); Albumin 2.9 g/dL (3.4-4.8); Alkaline Phosphatase 171 U/L (40-110); Anion Gap 12 mmol/L (10-20); BUN (Urea Nitrogen) 25 mg/dL (9.8-20.1); Calc. Creatinine Clearance 57 mL/min (70-130); Calcium 9.1 mg/dL (7.8-10.44); Carbon Dioxide 29 mmol/L (23-31); Chloride 109 mmol/L (98-107); Estimated GFR 58; Globulin 3.5 g/dL (2.4-3.5); Glucose 139 mg/dL (83-110); Potassium 3.4 mmol/L (3.5-5.1); Protein, Total 6.4 g/dL (5.8-8.1); Sodium 147 mmol/L (136-145)
[2023-08-10 06:13] LABS: Platelet Count 56 10x3/uL (130-400)
[2023-08-10] MEDS ORDERED: Potassium Bicarbonate/Cit Ac 20 MEQ TAB PER TUBE SCH (08:00)
[2023-08-10] MEDS ORDERED: Magnesium 2 GM/50 ML(in water) 2 GM in Premix 1 BAG IVPB SCH (08:00)
[2023-08-10] MEDS: buPROPion HCl 100 MG TAB PER TUBE SCH ×4 (08:46→20:16)
[2023-08-10] MEDS: Lansoprazole 15 MG/5 ML (BATCHED)UDCUP PER TUBE SCH (08:46)
[2023-08-10] MEDS: Empagliflozin 10 MG TAB PO SCH (08:47)
[2023-08-10] MEDS: Citalopram 10 MG TAB PER TUBE SCH (08:47)
[2023-08-10] MEDS: Torsemide 20 MG TAB PER TUBE SCH (08:47)
[2023-08-10] MEDS: rOPINIRole HCl 1 MG TAB PER TUBE SCH ×2 (08:47→20:16)
[2023-08-10] MEDS: Ursodiol 300 MG CAP PER TUBE SCH ×2 (08:47→20:16)
[2023-08-10] MEDS: Thyroid 30 MG TAB PO SCH (08:47)
[2023-08-10] MEDS: Montelukast Sodium 10 mg Tablet PER TUBE SCH (08:47)
[2023-08-10] MEDS: Spironolactone 25 MG TAB PER TUBE SCH (08:48)
[2023-08-10] MEDS: Nadolol 40 MG TAB PER TUBE SCH (08:48)
[2023-08-10] MEDS: Rifaximin 200 MG TAB PER TUBE SCH ×3 (09:14→20:17)
[2023-08-10] MEDS: HYDROcodone/Acetaminophen 5/325 mg Tablet PER TUBE PRN ×2 (11:53→20:17)
[2023-08-10] MEDS: Dextrose 5% in Water 1,000 ML IV SCH (16:48)
[2023-08-10] MEDS: Atorvastatin Calcium 40 MG TAB PER TUBE SCH (20:16)
[2023-08-10] MEDS: Melatonin 3 MG TAB PER TUBE SCH (20:16)
[2023-08-11] MEDS: Morphine 2 MG/ML VIAL SLOW IVP PRN ×5 (00:56→23:12)
[2023-08-11 04:04] LABS: #Eosinphils 0.2 thou/uL (0.0-0.7); #Monocytes 1.5 thou/uL (0.11-0.59); #Neutrophils 4.8 thou/uL (1.40-6.50); %Basophils 0.5 % (0.0-1.0); %Eosinophils 2.1 % (0.0-10.0); %Lymphocytes 22.2 % (21.0-51.0); %Monocytes 17.4 % (0.0-10.0); %Neutrophils 56.9 % (42.0-75.0); Hematocrit 29.1 % (36.0-47.0); Hemoglobin 9.1 g/dL (12.0-16.0); Mean Corpuscular HGB CONC 31.3 g/dL (32.0-36.0); Mean Corpuscular Hemoglobin 28.3 pg (27.0-31.0); Mean Corpuscular Volume 90.7 fl (78.0-98.0); RBC Distribution Width 25.9 % (11.5-14.5); Red Blood Cell (RBC) Count 3.21 mill/uL (4.20-5.40); White Blood Cell (WBC) Count 8.5 10x3/uL (4.8-10.8)
[2023-08-11 04:06] LABS: Platelet Count 63 10x3/uL (130-400)
[2023-08-11 04:31] LABS: INR-International Normal Ratio 1.3; Prothrombin Time 17.2 sec (12.0-14.7)
[2023-08-11 04:32] LABS: PTT 35.9 sec (22.9-36.1)
[2023-08-11 04:47] LABS: Sodium 148 mmol/L (136-145)
[2023-08-11 04:48] LABS: Anion Gap 15 mmol/L (10-20); BUN (Urea Nitrogen) 21 mg/dL (9.8-20.1); Carbon Dioxide 31 mmol/L (23-31); Chloride 106 mmol/L (98-107); Potassium 3.7 mmol/L (3.5-5.1)
[2023-08-11 04:49] LABS: ALT (SGPT) 22 U/L (8-55); AST (SGOT) 40 U/L (5-34); Albumin 2.7 g/dL (3.4-4.8); Alkaline Phosphatase 188 U/L (40-110); Bilirubin, Total 1.7 mg/dL (0.2-1.2); Calc. Creatinine Clearance 56 mL/min (70-130); Calcium 9.1 mg/dL (7.6-10.4); Estimated GFR 57; Globulin 3.7 g/dL (2.4-3.5); Glucose 150 mg/dL (83-110); Magnesium 2.2 mg/dL (1.6-2.6); Protein, Total 6.4 g/dL (5.8-8.1)
[2023-08-11 05:48] LABS: CellaVision Operator ID lab.abc; Hypochromia SLIGHT = 6-15 cells HPF (0-5); Platelet Adequacy Comment Platelets Decreased
[2023-08-11] MEDS ORDERED: Thyroid 30 MG TAB PER TUBE SCH (06:00)
[2023-08-11 06:50] LABS: Anisocytosis SLIGHT = 6-15 cells HPF (0-5); Polychromasia SLIGHT = 2-3 cells HPF (0-2); Smudge Cells 8.9 %
[2023-08-11] MEDS ORDERED: Dextrose 5% in Water 1,000 ML IV SCH (07:30)
[2023-08-11] MEDS: Dextrose 5% in Water 1,000 ML IV SCH (09:13)
[2023-08-11] MEDS: Nadolol 40 MG TAB PER TUBE SCH (14:00)
[2023-08-11] MEDS: Spironolactone 25 MG TAB PER TUBE SCH (14:00)
[2023-08-11] MEDS: Empagliflozin 10 MG TAB PO SCH (14:00)
[2023-08-11] MEDS: Citalopram 10 MG TAB PER TUBE SCH (14:00)
[2023-08-11] MEDS: buPROPion HCl 100 MG TAB PER TUBE SCH ×2 (14:00→14:02)
[2023-08-11] MEDS: Montelukast Sodium 10 mg Tablet PER TUBE SCH (14:00)
[2023-08-11] MEDS: Lansoprazole 15 MG/5 ML (BATCHED)UDCUP PER TUBE SCH (14:00)
[2023-08-11] MEDS: rOPINIRole HCl 1 MG TAB PER TUBE SCH (14:01)
[2023-08-11] MEDS: Rifaximin 200 MG TAB PER TUBE SCH (14:01)
[2023-08-11] MEDS: Ursodiol 300 MG CAP PER TUBE SCH (14:02)
[2023-08-11] MEDS: Torsemide 20 MG TAB PER TUBE SCH (14:02)
[2023-08-11] MEDS: Lorazepam 2 MG/ML VIAL SLOW IVP PRN ×3 (14:13→21:10)
[2023-08-11] MEDS ORDERED: Morphine 2 MG/ML VIAL SLOW IVP SCH (16:30)
[2023-08-11] MEDS: Lorazepam 2 MG/ML VIAL SLOW IVP SCH (16:30)
[2023-08-11 16:39] VITALS: TEMP 97.7
[2023-08-12 08:17] VITALS: BP 128/68
[2023-08-12] MEDS ORDERED: Lorazepam 2 MG/ML VIAL SLOW IVP PRN (10:03)
[2023-08-12] MEDS: Morphine 2 MG/ML VIAL SLOW IVP PRN (10:07)
[2023-08-12] MEDS ORDERED: GLYCOPYRROLATE/PF 0.2 MG/ML VIAL SLOW IVP SCH (10:15)
[2023-08-12] MEDS ORDERED: Scopolamine 1 mg/72 hour Patch TD SCH (11:00)
== END 2023-08-12 11:02 | disposition hospice, inpatient (51) | DRG 64 ==
LOC: ERS 21:44 → ERHOLD 07-29 06:03 → IMCU/EMU 07-29 08:02 → SURG A 07-31 16:27 → 2SE 08-06 15:03 → MSONC 08-11 16:05
PROVIDERS: ADMIT Internal Medicine; ATTEND Internal Medicine
PROC: 4A033R1 Measurement of Arterial Saturation, Peripheral, Percutaneous Approach (ICD-10-PCS; 2023-07-29)
PROC: 0W9G3ZX Drainage of Peritoneal Cavity, Percutaneous Approach, Diagnostic (ICD-10-PCS; principal; 2023-08-08)
PROC: 4A00X4Z Measurement of Central Nervous Electrical Activity, External Approach (ICD-10-PCS; 2023-08-09)
PROC: 6A550Z2 Pheresis of Platelets, Single (ICD-10-PCS; 2023-08-09)
DX: I63.9 Cerebral infarction, unspecified (principal); G93.41 Metabolic encephalopathy; N39.0 Urinary tract infection, site not specified; N17.9 Acute kidney failure, unspecified; E87.1 Hypo-osmolality and hyponatremia; Z16.23 Resistance to quinolones and fluoroquinolones; Z66 Do not resuscitate; K74.60 Unspecified cirrhosis of liver; E11.22 Type 2 diabetes mellitus with diabetic chronic kidney disease; I12.9 Hypertensive chronic kidney disease with stage 1 through stage 4 chronic kidney disease, or unspecified chronic kidney disease; N18.30 Chronic kidney disease, stage 3 unspecified; E78.5 Hyperlipidemia, unspecified; D69.6 Thrombocytopenia, unspecified; D64.9 Anemia, unspecified; R13.12 Dysphagia, oropharyngeal phase; B96.1 Klebsiella pneumoniae [K. pneumoniae] as the cause of diseases classified elsewhere; I25.10 Atherosclerotic heart disease of native coronary artery without angina pectoris; E03.9 Hypothyroidism, unspecified; Z96.641 Presence of right artificial hip joint; F32.A Depression, unspecified; Z79.899 Other long term (current) drug therapy; Z88.2 Allergy status to sulfonamides; Z88.1 Allergy status to other antibiotic agents; Z79.82 Long term (current) use of aspirin; S12.110D Anterior displaced Type II dens fracture, subsequent encounter for fracture with routine healing; Z51.5 Encounter for palliative care; Z90.49 Acquired absence of other specified parts of digestive tract
CPT/HCPCS: 12013; 36415; 36416; 36430; 49083; 70450; 70496; 70498; 70551; 71045; 71250; 72125; 72141; 72170; 74018; 74177; 80048; 80053; 80061; 80076; 80306; 81001; 82140; 82550; 82607; 82728; 82805; 82945; 83540; 83550; 83690; 83735; 84157; 84425; 84443; 84484; 85025; 85046; 85060; 85610; 85730; 86850; 86900; 86901; 87040; 87070; 87077; 87086; 87186; 87205; 88112; 88305; 89051; 93005; 93306; 95711; 95819; 96372; 96374; 96375; 96376; 97139; J0457; J1630; J1956; J2020; J2060; J2270; J2272; J2405; J3411; J3430; J3475; J3480; J3490; J7042; J7050; J7070; P9035; P9047; Q0162; Q9967

== ENCOUNTER 2023-08-12 11:23 | Inpatient (IN) | payer OTHER ==
[2023-08-12] MEDS ORDERED: Morphine 2 MG/ML VIAL SLOW IVP PRN (12:09)
[2023-08-12] MEDS ORDERED: Lorazepam 2 MG/ML VIAL SLOW IVP PRN (12:10)
[2023-08-12 12:12] VITALS: BMI 26.8
[2023-08-12] MEDS: Morphine 4 MG/ML VIAL SLOW IVP SCH ×6 (14:20→23:55)
[2023-08-12] MEDS: Lorazepam 2 MG/ML VIAL SLOW IVP SCH ×6 (14:20→23:56)
[2023-08-12] MEDS: Scopolamine 1 mg/72 hour Patch TOP SCH (14:47)
[2023-08-13] MEDS: Morphine 4 MG/ML VIAL SLOW IVP SCH ×11 (02:16→22:08)
[2023-08-13] MEDS: Lorazepam 2 MG/ML VIAL SLOW IVP SCH ×11 (02:17→22:08)
[2023-08-13] MEDS: Atropine Sulfate 0.4 mg/1 ml Vial IVP PRN (21:12)
[2023-08-14] MEDS: Morphine 4 MG/ML VIAL SLOW IVP SCH ×12 (00:24→22:16)
[2023-08-14] MEDS: Lorazepam 2 MG/ML VIAL SLOW IVP SCH ×12 (00:25→22:17)
[2023-08-14] MEDS: Atropine Sulfate 0.4 mg/1 ml Vial IVP PRN ×4 (02:13→18:38)
[2023-08-14 09:09] VITALS: TEMP 94.4
[2023-08-15] MEDS: Lorazepam 2 MG/ML VIAL SLOW IVP SCH ×11 (00:42→21:40)
[2023-08-15] MEDS: Morphine 4 MG/ML VIAL SLOW IVP SCH ×11 (00:42→21:39)
[2023-08-15] MEDS: Scopolamine 1 mg/72 hour Patch TOP SCH (08:02)
[2023-08-16] MEDS: Lorazepam 2 MG/ML VIAL SLOW IVP SCH ×13 (00:09→22:05)
[2023-08-16] MEDS: Morphine 4 MG/ML VIAL SLOW IVP SCH ×13 (00:10→22:05)
[2023-08-16 20:31] VITALS: BP 42/31
[2023-08-17] MEDS: Morphine 4 MG/ML VIAL SLOW IVP SCH ×11 (00:20→20:03)
[2023-08-17] MEDS: Lorazepam 2 MG/ML VIAL SLOW IVP SCH ×11 (00:21→20:04)
== END 2023-08-17 21:00 | disposition expired | DRG 951 ==
LOC: MSONC 11:24
PROVIDERS: ADMIT Internal Medicine; ATTEND Family Medicine
DX: Z51.5 Encounter for palliative care (principal); G93.41 Metabolic encephalopathy; S12.110A Anterior displaced Type II dens fracture, initial encounter for closed fracture; N17.9 Acute kidney failure, unspecified; K74.60 Unspecified cirrhosis of liver; I12.9 Hypertensive chronic kidney disease with stage 1 through stage 4 chronic kidney disease, or unspecified chronic kidney disease; E11.22 Type 2 diabetes mellitus with diabetic chronic kidney disease; N18.30 Chronic kidney disease, stage 3 unspecified; E03.9 Hypothyroidism, unspecified; R29.6 Repeated falls; F32.A Depression, unspecified; I25.10 Atherosclerotic heart disease of native coronary artery without angina pectoris; G20.A1 Parkinson's disease without dyskinesia, without mention of fluctuations; M47.812 Spondylosis without myelopathy or radiculopathy, cervical region; Z88.2 Allergy status to sulfonamides; Z88.8 Allergy status to other drugs, medicaments and biological substances; Z79.82 Long term (current) use of aspirin; Z79.899 Other long term (current) drug therapy; Z90.49 Acquired absence of other specified parts of digestive tract; Z96.641 Presence of right artificial hip joint; W18.39XA Other fall on same level, initial encounter; D69.6 Thrombocytopenia, unspecified
CPT/HCPCS: J0461; J2060; J2270